=== PATIENT | female | born 1990 | race Caucasian/White ===

== ENCOUNTER 2018-11-06 21:04 | Outpatient (CLI) | payer OTHER ==
[~2018-11-06 21:04] MED LIST: PEPCID40 MG PO
[2018-11-06] MEDS ORDERED: PRENATAL 19 TA1 EAC1 PO (21:41)
== END 2018-11-07 10:39 | disposition home or self-care (01) ==
LOC: OBS/DEL 21:04
DX: O30.032 Twin pregnancy, monochorionic/diamniotic, second trimester (principal); O99.012 Anemia complicating pregnancy, second trimester; D64.89 Other specified anemias; O36.092 Maternal care for other rhesus isoimmunization, second trimester; Z34.82 Encounter for supervision of other normal pregnancy, second trimester

== ENCOUNTER 2018-11-16 19:45 | Outpatient (CLI) | payer OTHER ==
[~2018-11-16 19:45] MED LIST changes: +PRENATAL 19 TA1 EAC1 PO
[2018-11-16] MEDS ORDERED: IRON325 MG PO (20:19)
[2018-11-16] MEDS ORDERED: FOLIC ACID20 MG PO (20:19)
== END 2018-11-17 16:00 | disposition home or self-care (01) ==
LOC: OBS/DEL 19:45
DX: O23.42 Unspecified infection of urinary tract in pregnancy, second trimester (principal); O35.8XX0 Maternal care for other (suspected) fetal abnormality and damage, not applicable or unspecified; O30.042 Twin pregnancy, dichorionic/diamniotic, second trimester; O98.812 Other maternal infectious and parasitic diseases complicating pregnancy, second trimester; B37.3 Candidiasis of vulva and vagina; Z34.82 Encounter for supervision of other normal pregnancy, second trimester

== ENCOUNTER 2018-12-19 12:39 | Inpatient (IN) | payer OTHER ==
[~2018-12-19] VITALS: Ht 149.9 cm; Wt 6.4 kg
[~2018-12-19 12:39] MED LIST changes: +FOLIC ACID20 MG PO; +IRON325 MG PO
== END 2018-12-21 11:39 | disposition home or self-care (01) | DRG 833 ==
LOC: OBS/DEL 12:39 → LDR 12-20 09:59
PROVIDERS: ADMIT Specialist
PROC: BY4DZZZ Ultrasonography of Second Trimester, Multiple Gestation (ICD-10-PCS; principal; 2018-12-19)
PROC: 30233N1 Transfusion of Nonautologous Red Blood Cells into Peripheral Vein, Percutaneous Approach (ICD-10-PCS; 2018-12-19)
PROC: 4A0HXFZ Measurement of Products of Conception, Cardiac Rhythm, External Approach (ICD-10-PCS; 2018-12-20)
DX: O99.012 Anemia complicating pregnancy, second trimester (principal); O36.8122 Decreased fetal movements, second trimester, fetus 2; O30.032 Twin pregnancy, monochorionic/diamniotic, second trimester; O30.92 Multiple gestation, unspecified, second trimester; D64.89 Other specified anemias; Z3A.26 26 weeks gestation of pregnancy

== ENCOUNTER 2019-01-09 19:39 | Outpatient (CLI) | payer OTHER | END 2019-01-10 20:00 | disposition home or self-care (01) | LOC: OBS/DEL 19:39 | DX: O30.043 Twin pregnancy, dichorionic/diamniotic, third trimester (principal); O26.893 Other specified pregnancy related conditions, third trimester; R55 Syncope and collapse; Z34.83 Encounter for supervision of other normal pregnancy, third trimester ==

== ENCOUNTER 2019-02-06 16:35 | Outpatient (CLI) | payer OTHER | END 2019-02-06 20:49 | disposition home or self-care (01) | LOC: OBS/DEL 16:35 | DX: O26.893 Other specified pregnancy related conditions, third trimester (principal); R10.2 Pelvic and perineal pain; O30.043 Twin pregnancy, dichorionic/diamniotic, third trimester; Z34.83 Encounter for supervision of other normal pregnancy, third trimester ==

== ENCOUNTER 2019-02-25 15:00 | Inpatient (IN) | payer OTHER ==
[~2019-02-25] VITALS: Ht 149.9 cm; Wt 1.8 kg
== END 2019-03-01 11:20 | disposition home or self-care (01) | DRG 785 ==
LOC: OBS/DEL 15:00 → LDR 02-26 16:53 → OB/GYN 02-26 16:53
PROVIDERS: ADMIT Specialist
PROC: 0UL70ZZ Occlusion of Bilateral Fallopian Tubes, Open Approach (ICD-10-PCS; 2019-02-26)
PROC: 4A1HXCZ Monitoring of Products of Conception, Cardiac Rate, External Approach (ICD-10-PCS; 2019-02-26)
PROC: 10D00Z1 Extraction of Products of Conception, Low, Open Approach (ICD-10-PCS; principal; 2019-02-26 17:00)
DX: O82 Encounter for cesarean delivery without indication (principal); O32.1XX2 Maternal care for breech presentation, fetus 2; O30.043 Twin pregnancy, dichorionic/diamniotic, third trimester; Z3A.36 36 weeks gestation of pregnancy; Z37.2 Twins, both liveborn; Z30.2 Encounter for sterilization

== ENCOUNTER 2019-04-15 22:07 | Emergency (ER) | payer OTHER ==
[~2019-04-15] VITALS: Ht 149.9 cm; Wt 46.7 kg
[2019-04-16] MEDS ORDERED: ZITHROMAX500 MG PO (01:56)
[2019-04-16] MEDS ORDERED: TUSNEL LIQUID178 ML PO (01:56)
== END 2019-04-16 02:10 | disposition home or self-care (01) ==
LOC: ER 22:07
DX: B99.8 Other infectious disease (principal); B96.0 Mycoplasma pneumoniae [M. pneumoniae] as the cause of diseases classified elsewhere